=== PATIENT | female | born 1990 | race Caucasian/White ===

== ENCOUNTER 2018-08-17 16:05 | Emergency (ER) | payer OTHER ==
[2018-08-17] MEDS ORDERED: SODIUM CHLORIDE 0.9% 1,000 ML IV STA (17:55)
[2018-08-17] MEDS ORDERED: KETOROLAC 30 MG/ML 1 ML VIAL IVP STA (17:56)
--- NOTE | 2018-08-17 18:07 | ED ---
General Adult HPI - General Chief complaint: Abdominal Pain Stated complaint: Pain in Side Time Seen by Provider: 08/17/18 17:35 Source: patient, RN notes reviewed Mode of arrival: ambulatory Limitations: no limitations - History of Present Illness Initial comments: 28-year-old female with a past medical history of 2 sections presents to the emergency department for a chief complaint of abdominal pain 9 hours. Patient states the pain is currently 5 out of 5. She states it is mainly in the left lower quadrant and is a sharp and shooting pain. Patient denies any pelvic pain. Patient denies any vomiting but states she has been mildly nauseous. She states she has been eating and drinking normally. She denies any chance of . Patient denies any history of sexually transmitted diseases or vaginal discharge. She denies any fevers or chills at home. Patient has no other complaints at this time including shortness of breath, chest pain, headache, or visual changes. - Related Data Home Medications Medication Instructions Recorded Confirmed No Known Home Medications 08/17/18 08/17/18 Allergies Allergy/AdvReac Type Severity Reaction Status Date / Time No Known Allergies Allergy Verified 08/17/18 16:23 Review of Systems ROS Statement: Those systems with pertinent positive or pertinent negative responses have been documented in the HPI. ROS Other: All systems not noted in ROS Statement are negative. Past Medical History Past Medical History: No Reported History History of Any Multi-Drug Resistant Organisms: None Reported Past Surgical History: Section Past Psychological History: Depression Smoking Status: Current every day smoker Past Alcohol Use History: None Reported Past Drug Use History: None Reported General Exam Limitations: no limitations General appearance: alert, in no apparent distress Head exam: Present: atraumatic, normocephalic, normal inspection Eye exam: Present: normal appearance, PERRL, EOMI. Absent: scleral icterus, conjunctival injection, periorbital swelling ENT exam: Present: normal exam, normal oropharynx, mucous membranes moist, normal external ear exam Neck exam: Present: normal inspection, full ROM. Absent: tenderness, meningismus, lymphadenopathy Respiratory exam: Present: normal lung sounds bilaterally. Absent: respiratory distress, wheezes, rales, rhonchi, stridor Cardiovascular Exam: Present: regular rate, normal rhythm, normal heart sounds. Absent: systolic murmur, diastolic murmur, rubs, gallop, clicks GI/Abdominal exam: Present: soft, tenderness (LLQ tenderness without rebound or guarding.), normal bowel sounds, other (Negative obturator and psoas signs. No McBurney point tenderness. Negative Moore sign.). Absent: distended, guarding , rebound, rigid Course Vital Signs 08/17/18 08/17/18 08/17/18 16:21 19:25 21:52 Temperature 98 F 98.6 F 97.8 F Pulse Rate 63 59 L 76 Respiratory 16 14 18 Rate Blood Pressure 113/70 110/61 127/68 O2 Sat by Pulse 99 100 98 Oximetry Medical Decision Making - Medical Decision Making 28-year-old female presents to the emergency determine for chief complaint of abdominal pain 9 hours. Pain is currently a 5 out of 5. She describes it as a sharp pain. CBC and CMP unremarkable. Urine negative for any evidence of infection. G&C were added to urine, currently pending results. CT shows left ovarian cyst with mild constipation. Transvaginal ultrasound showed a possible hemorrhagic cyst. No evidence for ovarian torsion. This is likely the cause of patient's pain. Patient will follow up with primary care for this. Patient aware to take Motrin and Tylenol for pain and to return immediately to the emergency Department if she has any worsening symptoms. - Lab Data Result diagrams: 08/17/18 18:11 08/17/18 18:11 Lab Results 08/17/18 08/17/18 08/17/18 Range/Units 18:11 18:11 18:11 WBC 4.7 (3.8-10.6) k/uL RBC 3.96 (3.80-5.40) m/uL Hgb 12.2 (11.4-16.0) gm/dL Hct 35.8 (34.0-46.0) % MCV 90.2 (80.0-100.0) fL MCH 30.8 (25.0-35.0) pg MCHC 34.1 (31.0-37.0) g/dL RDW 12.6 (11.5-15.5) % Plt Count 163 (150-450) k/uL Neutrophils % 56 % Lymphocytes % 34 % Monocytes % 7 % Eosinophils % 2 % Basophils % 0 % Neutrophils # 2.6 (1.3-7.7) k/uL Lymphocytes # 1.6 (1.0-4.8) k/uL Monocytes # 0.3 (0-1.0) k/uL Eosinophils # 0.1 (0-0.7) k/uL Basophils # 0.0 (0-0.2) k/uL Sodium 137 (137-145) mmol/L Potassium 4.2 (3.5-5.1) mmol/L Chloride 105 (98-107) mmol/L Carbon Dioxide 25 (22-30) mmol/L Anion Gap 7 mmol/L BUN 11 (7-17) mg/dL Creatinine 0.63 (0.52-1.04) mg/dL Est GFR (CKD-EPI)AfAm >90 (>60 ml/min/1.73 sqM) Est GFR (CKD-EPI)NonAf >90 (>60 ml/min/1.73 sqM) Glucose 87 (74-99) mg/dL Calcium 9.3 (8.4-10.2) mg/dL Total Bilirubin 0.2 (0.2-1.3) mg/dL AST 19 (14-36) U/L ALT 15 (9-52) U/L Alkaline Phosphatase 36 L (38-126) U/L Total Protein 6.2 L (6.3-8.2) g/dL Albumin 3.5 (3.5-5.0) g/dL Amylase 52 (30-110) U/L Lipase 270 (23-300) U/L Urine Color Urine Appearance (Clear) Urine pH (5.0-8.0) Ur Specific [place] (1.001-1.035) Urine Protein (Negative) Urine Glucose (UA) (Negative) Urine Ketones (Negative) Urine Blood (Negative) Urine Nitrite (Negative) Urine Bilirubin (Negative) Urine Urobilinogen (<2.0) mg/dL Ur Leukocyte Esterase (Negative) Urine WBC (0-5) /hpf Ur Squamous Epith Cells (0-4) /hpf Urine Bacteria (None) /hpf Urine HCG, Qual Not Detected (Not Detectd) 08/17/18 Range/Units 18:11 WBC (3.8-10.6) k/uL RBC (3.80-5.40) m/uL Hgb (11.4-16.0) gm/dL Hct (34.0-46.0) % MCV (80.0-100.0) fL MCH (25.0-35.0) pg MCHC (31.0-37.0) g/dL RDW (11.5-15.5) % Plt Count (150-450) k/uL Neutrophils % % Lymphocytes % % Monocytes % % Eosinophils % % Basophils % % Neutrophils # (1.3-7.7) k/uL Lymphocytes # (1.0-4.8) k/uL Monocytes # (0-1.0) k/uL Eosinophils # (0-0.7) k/uL Basophils # (0-0.2) k/uL Sodium (137-145) mmol/L Potassium (3.5-5.1) mmol/L Chloride (98-107) mmol/L Carbon Dioxide (22-30) mmol/L Anion Gap mmol/L BUN (7-17) mg/dL Creatinine (0.52-1.04) mg/dL Est GFR (CKD-EPI)AfAm (>60 ml/min/1.73 sqM) Est GFR (CKD-EPI)NonAf (>60 ml/min/1.73 sqM) Glucose (74-99) mg/dL Calcium (8.4-10.2) mg/dL Total Bilirubin (0.2-1.3) mg/dL AST (14-36) U/L ALT (9-52) U/L Alkaline Phosphatase (38-126) U/L Total Protein (6.3-8.2) g/dL Albumin (3.5-5.0) g/dL Amylase (30-110) U/L Lipase (23-300) U/L Urine Color Light Yellow Urine Appearance Cloudy H (Clear) Urine pH 7.0 (5.0-8.0) Ur Specific [place] 1.013 (1.001-1.035) Urine Protein Negative (Negative) Urine Glucose (UA) Negative (Negative) Urine Ketones Negative (Negative) Urine Blood Negative (Negative) Urine Nitrite Negative (Negative) Urine Bilirubin Negative (Negative) Urine Urobilinogen <2.0 (<2.0) mg/dL Ur Leukocyte Esterase Negative (Negative) Urine WBC <1 (0-5) /hpf Ur Squamous Epith Cells 15 H (0-4) /hpf Urine Bacteria Many H (None) /hpf Urine HCG, Qual (Not Detectd) Disposition Clinical Impression: Ovarian cyst Disposition: HOME SELF-CARE Condition: Good Instructions: Ovarian Cyst (ED) Additional Instructions: Please take Motrin or Tylenol for pain. Please follow-up with primary care in 1 -2 days. Return to the emergency department if you have any worsening symptoms. Is patient prescribed a controlled substance at d/c from ED?: No Referrals: Kierra Talley MD [STAFF PHYSICIAN] - 1-2 days Time of Disposition: 21:18
[2018-08-17 18:24] LABS: Basophils % (A) 0 %; Eosinophils # (A) 0.1 k/uL (0-0.7); Eosinophils % (A) 2 %; HCT 35.8 % (34.0-46.0); HGB 12.2 gm/dL (11.4-16.0); Lymphocytes # (A) 1.6 k/uL (1.0-4.8); Lymphocytes % (A) 34 %; MCH 30.8 pg (25.0-35.0); MCHC 34.1 g/dL (31.0-37.0); MCV 90.2 fL (80.0-100.0); Mean Platelet Volume 7.6; Monocytes # (A) 0.3 k/uL (0-1.0); Monocytes % (A) 7 %; Neutrophils # (A) 2.6 k/uL (1.3-7.7); Neutrophils % (A) 56 %; Platelet Count 163 k/uL (150-450); RBC 3.96 m/uL (3.80-5.40); RDW 12.6 % (11.5-15.5); WBC 4.7 k/uL (3.8-10.6)
[2018-08-17 18:38] LABS: Appearance,Urine Cloudy (Clear); Bacteria,Urine Many /hpf; Bilirubin,Urine Negative (Negative); Blood,Urine Negative (Negative); Color,Urine Light Yellow; Glucose,Urine (UA) Negative (Negative); Ketones,Urine Negative (Negative); Leukocyte Esterase,Urine Negative (Negative); Nitrite,Urine Negative (Negative); Protein,Urine Negative (Negative); Specific Gravity,Urine 1.013 (1.001-1.035); Squamous Epithelial Cell,Urine 15 /hpf (0-4); Urobilinogen,Urine <2.0 mg/dL (<2.0); WBC,Urine <1 /hpf (0-5)
[2018-08-17 18:44] LABS: ALT 15 U/L (9-52); AST 19 U/L (14-36); Albumin 3.5 g/dL (3.5-5.0); Alkaline Phosphatase 36 U/L (38-126); Amylase 52 U/L (30-110); Anion Gap 7 mmol/L; Blood Urea Nitrogen 11 mg/dL (7-17); Calcium 9.3 mg/dL (8.4-10.2); Carbon Dioxide 25 mmol/L (22-30); Chloride 105 mmol/L (98-107); Glucose 87 mg/dL (74-99); Lipase 270 U/L (23-300); Potassium 4.2 mmol/L (3.5-5.1); Sodium 137 mmol/L (137-145); Total Bilirubin 0.2 mg/dL (0.2-1.3); Total Protein 6.2 g/dL (6.3-8.2)
--- NOTE | 2018-08-17 19:03 | CT ---
EXAMINATION TYPE: CT abdomen pelvis w con DATE OF EXAM: 08/17/2018 COMPARISON: None HISTORY: Left lower quadrant abdominal pain and nausea. CT DLP: 342.8 mGycm Automated exposure control for dose reduction was used. TECHNIQUE: Helical acquisition of images was performed from the lung bases through the pelvis. CONTRAST: Performed without Oral Contrast and with IV Contrast, patient injected with 100ml mL of Isovue M300. FINDINGS: Lung bases are clear. There is no pleural effusion. Heart size is normal. There is no pericardial eff usion. Stomach appears normal. Liver spleen pancreas all bladder appear normal. Bile ducts are not dilated. There is no adrenal mass. Kidneys show satisfactory contrast opacification. There is no hydronephrosi s. There is no retroperitoneal adenopathy. Bladder distends smoothly. Uterus is retroverted. There is retained fecal material in the rectum. I see no intestinal wall thickening. There is no mesenteric e connor or adenopathy. There is no inguinal hernia. There is probably a 2 x 1.5 cm cyst on the left ovar y. There is no ascites. There is no sign of free air. Bony structures are intact. I see no bony destr uctive process. Appendix is not definitely seen. There is no sign of appendicitis. IMPRESSION: LEFT OVARIAN CYST. MILD CONSTIPATION.
--- NOTE | 2018-08-17 20:48 | US ---
EXAMINATION TYPE: US transvaginal DATE OF EXAM: 08/17/2018 COMPARISON: NONE CLINICAL HISTORY: Pain, LLQ, cyst on CT. TECHNIQUE: . Transvaginal sonographic images of the pelvis were acquired. Date of LMP: Unsure EXAM MEASUREMENTS: Uterus: 8.1 x 5.2 x 5.2 cm Endometrial Stripe: 0.9 cm Right Ovary: 2.9 x 2.2 x 2.3 cm Left Ovary: 3.6 x 2.2 x 2.8 cm 1. Uterus: Retroverted wnl 2. Endometrium: wnl 3. Right Ovary: Multiple follicles visualized, wnl 4. Left Ovary: Complex cystic area visualized measuring 1.9 x 1.6 x 1.4 cm, possible hemorrhagic cys t Spectral, color and waveform doppler imaging shows good arterial and venous flow within the ovaries ; there is no evidence for ovarian torsion. 5. Bilateral Adnexa: Free fluid visualized 6. Posterior cul-de-sac: Free fluid visualized IMPRESSION: Complex 13 mm left ovarian cyst could be a hemorrhagic cyst. Mild free fluid. Normal uter us and endometrium. Numerous follicular cysts on both ovaries. Normal waveforms in the ovarian arteri es. No evidence of torsion.
[2018-08-17 21:52] VITALS: BP 127/68; PULSE 76; RESP 18; TEMP 97.8
[2018-08-18 14:38] LABS: C. trachomatis,PCR Negative (Neg,Equiv); Chlamydia trachomatis Source Urine; N. gonorrhoeae,PCR Negative (Neg,Equiv); Neisseria Source Urine
== END 2018-08-17 21:55 | disposition home or self-care (01) ==
LOC: EC 16:05
DX: N83.202 Unspecified ovarian cyst, left side (principal); K59.00 Constipation, unspecified; F17.200 Nicotine dependence, unspecified, uncomplicated
CPT/HCPCS: 36415; 80053; 82150; 83690; 85025; 81001; 81025; 87491; 87591; 93975; 76830; 74177; 99284; 96374; 96361; J1885; Q9967